=== PATIENT | female | born 1960 | race Asian ===

== ENCOUNTER 2017-05-27 11:57 | Emergency (ER) | payer BC ==
[2017-05-27 12:28] VITALS: BP 136/65
--- NOTE | 2017-05-27 13:52 | UC ---
Respiratory Complaint HPI - HPI Summary HPI Summary: Cough that began in April-feels like she is bringing up sputum but is not spitting it out, denies fevers, chills, night sweats, no bloody sputum or weight loss - History of Current Complaint Chief Complaint: UCRespiratory Stated Complaint: COUGH Time Seen by Provider: 05/27/17 13:19 Hx Obtained From: Patient ?: No Onset/Duration: Gradual Onset, Lasting Weeks - 4, Still Present Timing: Constant Severity Initially: Mild Severity Currently: Mild Character: Cough: Productive Aggravating Factors: Nothing Alleviating Factors: Nothing Associated Signs And Symptoms: Positive: Negative - Allergies/Home Medications Allergies/Adverse Reactions: Allergies Allergy/AdvReac Type Severity Reaction Status Date / Time No Known Allergies Allergy Verified 05/27/17 12:28 PMH/Surg Hx/FS Hx/Imm Hx Previously Healthy: No - tb treatment complete - Surgical History Surgical History: None - Family History Family History: no family hx of Cardiac disease or HTN - Social History Occupation: Unemployed Lives: With Family Alcohol Use: None Substance Use Type: None Smoking Status (MU): Never Smoked Tobacco - Immunization History Most Recent Influenza Vaccination: 02/2017 Most Recent Tetanus Shot: UNKNOWN Review of Systems Constitutional: Negative Skin: Negative Eyes: Negative ENT: Negative Respiratory: Cough Cardiovascular: Negative Gastrointestinal: Negative Genitourinary: Negative Motor: Negative Neurovascular: Negative Musculoskeletal: Negative Neurological: Negative Psychological: Negative Is Patient Immunocompromised?: No All Other Systems Reviewed And Are Negative: Yes Physical Exam Triage Information Reviewed: Yes Appearance: Well-Appearing, No Pain Distress, Well-Nourished Vital Signs: Initial Vital Signs Temp 98.6 F 05/27/17 12:23 Pulse 76 05/27/17 12:23 Resp 18 05/27/17 12:23 BP 136/65 05/27/17 12:23 Pulse Ox 99 05/27/17 12:23 Vital Signs Reviewed: Yes Eye Exam: Normal Eyes: Positive: Conjunctiva Clear ENT Exam: Normal ENT: Positive: Normal ENT inspection, Hearing grossly normal, Pharynx normal, TMs normal, Uvula midline. Negative: Nasal congestion, Tonsillar swelling, Tonsillar exudate, Muffled voice, Hoarse voice, Dental tenderness, Sinus tenderness Dental Exam: Normal Neck exam: Normal Neck: Positive: Supple, Nontender, No Lymphadenopathy Respiratory Exam: Normal Respiratory: Positive: Chest non-tender, Lungs clear, Normal breath sounds, No respiratory distress, No accessory muscle use Cardiovascular Exam: Normal Cardiovascular: Positive: RRR, No Murmur, Pulses Normal, Brisk Capillary Refill Musculoskeletal Exam: Normal Musculoskeletal: Positive: Strength Intact, ROM Intact, No Edema Neurological Exam: Normal Neurological: Positive: Alert, Muscle Tone Normal Psychological Exam: Normal Skin Exam: Normal UC Diagnostic Evaluation - Laboratory O2 Sat by Pulse Oximetry: 99 - Radiology Xray Interpretation: No Acute Changes Radiology Interpretation Completed By: ED Physician, Radiologist Respiratory Course/Dx - Course Course Of Treatment: Increase fluids, mucinex, zithromax, follow with pcp - Differential Dx/Diagnosis Provider Diagnoses: Bronchitis, Discharge - Discharge Plan Condition: Stable Disposition: HOME Prescriptions: Azithromycin TAB* [Zithromax TAB (Z-IMANI) 250 mg #6 tabs] 2 tab PO .TODAY, THEN 1 DAILY #1 imani Patient Education Materials: Cetirizine/Pseudoephedrine (By mouth), Chronic Cough (ED) Referrals: Marlene Rojas MD [Primary Care Provider] - If Needed
--- NOTE | 2017-05-27 14:19 | RAD ---
INDICATION: Cough COMPARISON: None TECHNIQUE: PA and lateral dual-energy views were obtained. FINDINGS: Bones/Soft Tissues: There are no acute bony findings. Cardiomediastinal: The cardiomediastinal silhouette is normal. Lungs: There are no infiltrates. Pleura: There is mild biapical pleural scarring. Other: None IMPRESSION: NO ACTIVE DISEASE.
== END 2017-05-27 14:40 | disposition home or self-care (01) ==
LOC: UCEAST 11:57
DX: J40 Bronchitis, not specified as acute or chronic (principal)
CPT/HCPCS: 71046; 99212; G0463

== ENCOUNTER 2017-08-03 14:41 | Emergency (ER) | payer BC ==
--- OUTSIDE RECORDS SUMMARY | 2017-08-03 15:27 | XMS REPORT ---
:1960 External Reference #:[id number] Author Organization [facility] Address [address] [address] Phone [phone] Care Team Providers Name Role Phone Marlene Rojas MD Primary Care Physician Unavailable Payers Type Date Identification Numbers Payment Provider Subscriber Commercial Effective: Policy Number: [id number] BS Skyler Longo 2016 PayID: [id number] [address] [address] [place] [address] Medigap Part B Expires: 2016 Policy Number: [id number] BS Facets Alec Longo PayID: [id number] [address] [address] [place] [address] Problems Date Description Provider Status Onset: 01/20/2017 Hyperlipidemia Marlene Rojas M.D. Active Note: familial Onset: 01/20/2017 Adjustment disorder with anxious mood Marlene Rojas M.D. Active Onset: 02/17/2017 History of inactive tuberculosis Marlene Rojas M.D. Active Onset: 02/17/2017 History of Helicobacter pylori Marlene Rojas M.D. Active infection Onset: Uterine leiomyoma Active Family History Date Family Member(s) Problem(s) Comments General Hypercholesterolemia father side of family : (age 69 Father due to Stroke stroke.HTN Years) Mother 95 of pneumonia dementia Siblings 9 Social History Type Date Description Comments Marital Status Lives With Daughter Occupation Homemaker Cigarette Use Never Smoked Cigarettes ETOH Use Drinks Alcoholic Beverages Rarely Smoking Patient has never smoked Recreational Drug Use Never Used Drugs Daily Caffeine Does Not Consume Caffeine General Hx Text knitting Allergies, Adverse Reactions, Alerts Date Description Reaction Status Severity Comments 01/18/2017 NKDA active Medications Medication Date Status Form Strength Qnty SIG Indications Ordering Provider Crestor Active Tablets 5mg 90tabs 1 by Marlene Wheeler mouth Rojas, every day M.D. Vitamin D3 Active Chewtabs 1000Unit 90units 1 by Marlene Adult Gummies 018 mouth Rojas, every day M.D. OTC Fenofibrate Hx Tablets 120mg 90tabs not E78.4 Marlene 017 - taking--o Rojas, nce a day M.D. 018 Multi Vitamin 0 Hx Tablets not Unknown 000 - taking 018 Rosuvastatin Hx Tablets 5mg not Carl, Calcium 000 - taking MD Tami 017 Medications Administered in Office Medication Date Status Form Strength Qnty SIG Indications Ordering Provider Td(Adult),Unsp Administered Injection Unknown ecified 010 Immunizations CPT Code Status Date Vaccine Reaction Lot # [id number] Given 07/05/2017 Tdap - [id number] Tetanus/Diptheria/Acellular Pertussis 56308 Given 02/17/2017 Influenza Virus Vaccine, givenIM in L [id number] Quadrivalent, Split, arm,marine.well site Preservative Free unremarkable,bandaid applied Vital Signs Date Vital Result Comment 07/05/2017 Height 62.2 inches 5'2.20" Weight 107.00 lb Heart Rate 56 /min BP Systolic Sitting 110 mmHg BP Diastolic Sitting 60 mmHg O2 % BldC Oximetry 97 % BMI (Body Mass Index) 19.4 kg/m2 02/17/2017 Weight 104.38 lb Heart Rate 66 /min BP Systolic Sitting 120 mmHg BP Diastolic Sitting 74 mmHg Body Temperature 96.3 F O2 % BldC Oximetry 96 % 01/18/2017 Height 62.1 inches 5'2.10" Weight 103.00 lb Heart Rate 51 /min BP Systolic Sitting 146 mmHg BP Diastolic Sitting 88 mmHg Body Temperature 96.4 F O2 % BldC Oximetry 98 % BMI (Body Mass Index) 18.8 kg/m2 Results Test Date Test Result H/L Range Note Laboratory test finding 06/29/2017 Creatine Kinase(CK) 42 U/L 10-223 1 Quantiferon Gold TB <pending> Comp Metabolic Panel 06/29/2017 Sodium 138 mmol/L 133-145 Potassium 3.6 mmol/L 3.5-5.0 Chloride 103 mmol/L 101-111 Co2 Carbon Dioxide 27 mmol/L 22-32 Anion Gap 8 mmol/L 2-11 Glucose 96 mg/dL 70-100 Blood Urea Nitrogen 13 mg/dL 6-24 Creatinine 0.61 mg/dL 0.51-0.95 BUN/Creatinine Ratio 21.3 High 8-20 Calcium 9.6 mg/dL 8.6-10.3 Total Protein 7.2 g/dL 6.4-8.9 Albumin 4.6 g/dL 3.2-5.2 Globulin 2.6 g/dL 2-4 Albumin/Globulin Ratio 1.8 1-3 Total Bilirubin 0.70 mg/dL 0.2-1.0 Alkaline Phosphatase 98 U/L 34-104 Alt 10 U/L 7-52 Ast 16 U/L 13-39 Egfr Non- 101.1 >60 Egfr 130.0 >60 2 Lipid Profile (Trig/Chol/HDL) 06/29/2017 Triglycerides 214 mg/dL 3 Cholesterol 233 mg/dL 4 HDL Cholesterol 60.8 mg/dL 5 LDL Cholesterol 129 mg/dL 6 Laboratory test finding 06/25/2017 Helico Pylori Antigen- Negative Negative 7, 8 Stool Lipid Profile 02/09/2017 Triglycerides 101 mg/dL 9 (Trig/Chol/HDL) Cholesterol 287 mg/dL 10 HDL Cholesterol 70.6 mg/dL 11 LDL Cholesterol 196 mg/dL 12 Comp Metabolic Panel 02/09/2017 Sodium 138 mmol/L 133-145 Potassium 3.8 mmol/L 3.5-5.0 Chloride 102 mmol/L 101-111 Co2 Carbon Dioxide 30 mmol/L 22-32 Anion Gap 6 mmol/L 2-11 Glucose 92 mg/dL 70-100 Blood Urea Nitrogen 16 mg/dL 6-24 Creatinine 0.66 mg/dL 0.51-0.95 BUN/Creatinine Ratio 24.2 High 8-20 Calcium 9.3 mg/dL 8.6-10.3 Total Protein 7.0 g/dL 6.4-8.9 Albumin 4.5 g/dL 3.2-5.2 Globulin 2.5 g/dL 2-4 Albumin/Globulin Ratio 1.8 1-3 Total Bilirubin 0.70 mg/dL 0.2-1.0 Alkaline Phosphatase 83 U/L 34-104 Alt 9 U/L 7-52 Ast 17 U/L 13-39 Egfr Non- 92.6 >60 Egfr 119.1 >60 13 1 FASTING 10 HOUR 2 Because ethnic data is not always readily available, this report includes an eGFR for both -Americans and non- Americans. The National Kidney Disease Education Program (NKDEP) does not endorse the use of the MDRD equation for patients that are not between the ages of 18 and 70, are , have extremes of body size, muscle mass, or nutritional status, or are non- or non-. According to the National Kidney Foundation, irrespective of diagnosis, the stage of the disease is based on the level of kidney function: Stage Description GFR(mL/min/1.73 m(2)) 1 Kidney damage with normal or decreased GFR 90 2 Kidney damage with mild decrease in GFR 60-89 3 Moderate decrease in GFR 30-59 4 Severe decrease in GFR 15-29 5 Kidney failure <15 (or dialysis) 3 Desirable: <150 Borderline High: 150-199 High: 200-499 Very High: >500 4 Desirable: <200 Borderline High: 200-239 High: >239 5 Low: <40 Desirable: 40-60 High: >60 6 Desirable: <100 Near Optimal: 100-129 Borderline High: 130-159 High: 160-189 Very High: >189 7 [id number] Test Performed by: [address] [address] 9 Desirable <150 Borderline high 150-199 High 200-499 Very High >500 10 Desirable <200 Borderline high 200-239 High >239 11 Low <40 Desirable: 40-60 High: >60 12 Desirable: <100 mg/dL Near Optimal: 100-129 mg/dL Borderline High: 130-159 mg/dL High: 160-189 mg/dL Very High: >189 mg/dL 13 Because ethnic data is not always readily available, this report includes an eGFR for both -Americans and non- Americans. The National Kidney Disease Education Program (NKDEP) does not endorse the use of the MDRD equation for patients that are not between the ages of 18 and 70, are , have extremes of body size, muscle mass, or nutritional status, or are non- or non-. According to the National Kidney Foundation, irrespective of diagnosis, the stage of the disease is based on the level of kidney function: Stage Description GFR(mL/min/1.73 m(2)) 1 Kidney damage with normal or decreased GFR 90 2 Kidney damage with mild decrease in GFR 60-89 3 Moderate decrease in GFR 30-59 4 Severe decrease in GFR 15-29 5 Kidney failure <15 (or dialysis) Procedures Date CPT Code Description Status Comment 05/26/2017 Mammogram Completed 12/08/2012 55358 Treadmill Interp/Report Only Completed 12/08/2012 63814 Stress Test Supervsn W/Out Completed I/R 05/10/2012 Colonoscopy Completed internal hemorrhoids other villarreal nl repeat 2022 Dr. molina Encounters Type Date Location Provider CPT E/M Dx Office Visit 02/17/2017 [facility] Marlene Rojas M.D. 59831 F43.22 8:30a - [place] E78.4 R12 Z23 Z11.1 Office Visit 01/18/2017 9:10a [facility] Marlene Rojas M.D. 93383 E78.4 - [facility] Z91.14 F43.22 Office Visit 12/08/2012 8:18a [facility],perez Bonner M.D. 01429 786.50 Hospitalists 782.0 311 Office Visit 12/08/2012 8:59a [facility] Sacha Walden, 15868 794.31 Vania 786.50 272.4 Office Visit 12/07/2012 8:18a [facility],perez Bonner M.D. 38433 786.50 Hospitalists 782.0 311 Office Visit 11/17/2012 8:56a [facility], [address] 965.4 Hospitalists Vania 272.2 Plan of Care Future Appointment(s):09/02/2017 9:50 am - Marlene Rojas M.D. at [facility] - Wkplyvnfo01/26/2018 - Marlene Rojas M.D.Z00.00 Encntr for general adult medical exam w/o abnormal findingsComments:self breast exams are important monthlywe discussed taking at least 1000 mg of calcium and 1000 IU of D daily to help protect your bones you received the tetanus/whooping cough vaccine today which is good for 10 egxyvK20.4 Encounter for screening for malignant neoplasm of cervixNew Labs:LxeocsvbS94.2 Mixed hyperlipidemiaComments: continue to take Crestor daily as you are tolerating the medication wellR12 HeartburnComments:take prilosec daily for at least 6 weeksFollow up:2 [id number] Encounter for tazivmjjkqspN55.11 Nonspecific reaction to skin test w/o active tuberculosisReferral:Gian Cope MD, Infectious Diseases
[2017-08-03] MEDS ORDERED: Meclizine TAB* 12.5 MG PO ONE (16:07)
[2017-08-03 16:25] LABS: ABS Basophils 0 10^3/ul (0-0.2); ABS Eosinophils 0.2 10^3/ul (0-0.6); ABS Lymphocytes 1.4 10^3/ul (1.0-4.8); ABS Monocytes 0.3 10^3/ul (0-0.8); ABS Nucleated RBC 0 10^3/ul; Eosinophil % 5.8 % (0-6); Hematocrit 35 % (35-47); Hemoglobin 11.7 g/dl (12.0-16.0); Lymphocyte % 36.4 % (25-47); Mean Corpuscular HGB Conc 33 g/dl (31-36); Mean Corpuscular Hemoglobin 29 pg (27-31); Mean Corpuscular Volume 87 fL (80-97); Mean Platelet Volume 7.8 um3 (7.4-10.4); Nucleated Red Blood Cells % 0; Platelet Count 177 10^3/ul (150-450); Red Blood Count 4.02 10^6/ul (4.0-5.4); Red Cell Distribution Width 13 % (10.5-15)
[2017-08-03 16:41] LABS: INR 0.92 (0.77-1.02)
--- NOTE | 2017-08-03 17:07 | RAD ---
INDICATION: Dizziness COMPARISON: Chest x-ray dated May 27, 2017 TECHNIQUE: Single AP portable view of the chest was obtained. FINDINGS: Image quality is compromised due to the relative inferiority of a portable chest x-ray. The heart and mediastinum exhibit normal size and contour. The lungs are grossly clear. There is no evidence of a large pleural effusion. Visualized bones are normal for the patient's age. IMPRESSION: No radiographic evidence for acute cardiopulmonary abnormality on this portable chest x-ray.
--- NOTE | 2017-08-03 17:14 | RAD ---
INDICATION: Dizziness and nausea after hitting head on scaffolding 3-4 times over the past 3 days. COMPARISON: CT of the brain dated December 07, 2012 TECHNIQUE: Contiguous axial sections of the brain were obtained from the skull base to the vertex without contrast. FINDINGS: The ventricles, cisterns and sulci are within normal limits. The hyman-white matter differentiation is adequately maintained and there is no sulcal effacement. No significant focal abnormality or mass effect is present. There is no evidence for intracranial hemorrhage. No significant focal osseous abnormality is present. The visualized portion of the paranasal sinuses appear clear. The mastoid air cells are well aerated bilaterally. IMPRESSION: Normal CT of the brain.
[2017-08-03 18:03] LABS: Urine Appearance Clear; Urine Blood 2+ (Negative); Urine Color Yellow; Urine Ketones Negative (Negative); Urine Protein Negative (Negative); Urine Specific Gravity 1.013 (1.010-1.030); Urine Urobilinogen Negative (Negative)
[2017-08-03] MEDS ORDERED: Ondansetron ODT TAB* 4 MG PO ONE (18:08)
[2017-08-03 18:47] VITALS: BP 129/65
--- NOTE | 2017-08-03 21:17 | ED ---
Rogelio Boles Jennifer, scribed for Corwin Garcia on 08/03/17 at 1605 . Head Injury - HPI Summary HPI Summary: The patient is a 57 year old female who complains of hitting her head 4-5 times in the past few days. She reports that she has been painting her house and has repeatedly hit her head on the scaffolding three times yesterday and once this morning. She came to the ED because she has had headaches every night, nausea, and dizziness. She denies chest pain, shortness of breath, and fever. The patient additionally complains of neck pain, left ear pain, feeling like her eyes are burning. - History Of Current Complaint Chief Complaint: EDHeadInjury Stated Complaint: HEAD INJURY/NAUSEA Time Seen by Provider: 08/03/17 15:46 Hx Obtained From: Patient Mechanism Of Injury: Other - Hit head on scaffolding while painting house Onset/Duration: Started Days Ago - 3 days, Still Present Onset of Pain: Hours Severity Currently: None Severity Initially: Mild Pain Intensity: 0 Pain Scale Used: 0-10 Numeric Location of Head Injury: Diffuse Location: Diffuse Associated Signs And Symptoms: Other: - headache, nausea, dizziness, neck pain, left ear pain, eyes "burning". NEGATIVE: chest pain, shortness of breath, fever - Allergies/Home Medications Allergies/Adverse Reactions: Allergies Allergy/AdvReac Type Severity Reaction Status Date / Time No Known Allergies Allergy Verified 08/03/17 14:49 PMH/Surg Hx/FS Hx/Imm Hx Endocrine/Hematology History: Denies: Hx Diabetes Cardiovascular History: Reports: Hx Angina - CHEST PRESSURE, Hx Hypercholesterolemia, Other Cardiovascular Problems/Disorders - HYPERLIPIDEMIA Denies: Hx Congestive Heart Failure, Hx Hypertension, Hx Pacemaker/ICD Respiratory History: Reports: Hx Asthma Denies: Hx Chronic Obstructive Pulmonary Disease (COPD), Other Respiratory Problems/Disorders GI History: Reports: Other GI Disorders - HELICOBACTOR PYLORI History: Denies: Hx Renal Disease Sensory History: Denies: Hx Hearing Aid Neurological History: Reports: Hx Migraine Psychiatric History: Reports: Hx Depression, Hx Suicide Attempt - MOTRIN OVERDOSE 11/2012 Denies: Hx Eating Disorder, Hx Panic Disorder, Hx of Violent Episodes Against Others - Cancer History Hx Chemotherapy: No Hx Radiation Therapy: No - Immunization History Date of Tetanus Vaccine: Unk Date of Influenza Vaccine: Fall 2011 Immunizations Up to Date: Yes Infectious Disease History: No Infectious Disease History: Reports: Hx Tuberculosis - PER OLD H&P Denies: History Other Infectious Disease, Traveled Outside the [place] in Last 30 Days - Family History Known Family History: Negative: Cardiac Disease, Hypertension Family History: no family hx of Cardiac disease or HTN - Social History Alcohol Use: None Substance Use Type: Reports: None Smoking Status (MU): Never Smoked Tobacco Review of Systems Positive: Other - Feelign like eyes are "burning" Positive: Ear Ache - Left Positive: Nausea Positive: Other - Neck pain Neurological: Other - Dizziness Positive: Headache All Other Systems Reviewed And Are Negative: Yes Physical Exam - Summary Physical Exam Summary: Appearance: Well appearing, no pain distress Skin: warm, dry, reflects adequate perfusion Head/face: normal Eyes: EOMI, SINA ENT: normal Neck: supple, non-tender Respiratory: CTA, breath sounds present Cardiovascular: RRR, pulses symmetrical ~ Abdomen: non-tender, soft Bowel: present Musculoskeletal: normal, strength/ROM intact Neuro: normal, sensory motor intact, A&Ox3 Triage Information Reviewed: Yes Vital Signs On Initial Exam: Initial Vitals Temp Pulse Resp BP Pulse Ox 97.8 F 57 20 120/68 98 08/03/17 14:50 08/03/17 14:50 08/03/17 14:50 08/03/17 14:50 08/03/17 14:50 Vital Signs Reviewed: Yes Diagnostics - Vital Signs Vital Signs Temp Pulse Resp BP Pulse Ox 08/03/17 14:50 97.8 F 57 20 120/68 98 - Laboratory Lab Results: Lab Results 08/03/17 08/03/17 08/03/17 Range/Units 16:15 16:15 16:15 WBC 4.0 (3.5-10.8) 10^3/ul RBC 4.02 (4.0-5.4) 10^6/ul Hgb 11.7 L (12.0-16.0) g/dl Hct 35 (35-47) % MCV 87 (80-97) fL MCH 29 (27-31) pg MCHC 33 (31-36) g/dl RDW 13 (10.5-15) % Plt Count 177 (150-450) 10^3/ul MPV 7.8 (7.4-10.4) um3 Neut % (Auto) 49.1 (38-83) % Lymph % (Auto) 36.4 (25-47) % Barry % (Auto) 8.1 H (0-7) % Eos % (Auto) 5.8 (0-6) % Baso % (Auto) 0.6 (0-2) % Absolute Neuts (auto) 2.0 (1.5-7.7) 10^3/ul Absolute Lymphs (auto) 1.4 (1.0-4.8) 10^3/ul Absolute Monos (auto) 0.3 (0-0.8) 10^3/ul Absolute Eos (auto) 0.2 (0-0.6) 10^3/ul Absolute Basos (auto) 0 (0-0.2) 10^3/ul Absolute Nucleated RBC 0 10^3/ul Nucleated RBC % 0 INR (Anticoag Therapy) 0.92 (0.77-1.02) APTT 32.1 (26.0-36.3) seconds Sodium 142 (139-145) mmol/L Potassium 3.5 (3.5-5.0) mmol/L Chloride 107 (101-111) mmol/L Carbon Dioxide 27 (22-32) mmol/L Anion Gap 8 (2-11) mmol/L BUN 15 (6-24) mg/dL Creatinine 0.79 (0.51-0.95) mg/dL Est GFR ( Amer) 96.5 (>60) Est GFR (Non-Af Amer) 75.0 (>60) BUN/Creatinine Ratio 19.0 (8-20) Glucose 118 H (70-100) mg/dL Calcium 9.3 (8.6-10.3) mg/dL Total Bilirubin 0.50 (0.2-1.0) mg/dL AST 17 (13-39) U/L ALT 12 (7-52) U/L Alkaline Phosphatase 78 (34-104) U/L Troponin I 0.00 (<0.04) ng/mL Total Protein 6.9 (6.4-8.9) g/dL Albumin 4.3 (3.2-5.2) g/dL Globulin 2.6 (2-4) g/dL Albumin/Globulin Ratio 1.7 (1-3) Urine Color Urine Appearance Urine pH (5-9) Ur Specific [place] (1.010-1.030) Urine Protein (Negative) Urine Ketones (Negative) Urine Blood (Negative) Urine Nitrate (Negative) Urine Bilirubin (Negative) Urine Urobilinogen (Negative) Ur Leukocyte Esterase (Negative) Urine WBC (Auto) (Absent) Urine RBC (Auto) (Absent) Ur Squamous Epith Cells (Absent) Urine Bacteria (Absent) Urine Glucose (Negative) 08/03/17 Range/Units 17:50 WBC (3.5-10.8) 10^3/ul RBC (4.0-5.4) 10^6/ul Hgb (12.0-16.0) g/dl Hct (35-47) % MCV (80-97) fL MCH (27-31) pg MCHC (31-36) g/dl RDW (10.5-15) % Plt Count (150-450) 10^3/ul MPV (7.4-10.4) um3 Neut % (Auto) (38-83) % Lymph % (Auto) (25-47) % Barry % (Auto) (0-7) % Eos % (Auto) (0-6) % Baso % (Auto) (0-2) % Absolute Neuts (auto) (1.5-7.7) 10^3/ul Absolute Lymphs (auto) (1.0-4.8) 10^3/ul Absolute Monos (auto) (0-0.8) 10^3/ul Absolute Eos (auto) (0-0.6) 10^3/ul Absolute Basos (auto) (0-0.2) 10^3/ul Absolute Nucleated RBC 10^3/ul Nucleated RBC % INR (Anticoag Therapy) (0.77-1.02) APTT (26.0-36.3) seconds Sodium (139-145) mmol/L Potassium (3.5-5.0) mmol/L Chloride (101-111) mmol/L Carbon Dioxide (22-32) mmol/L Anion Gap (2-11) mmol/L BUN (6-24) mg/dL Creatinine (0.51-0.95) mg/dL Est GFR ( Amer) (>60) Est GFR (Non-Af Amer) (>60) BUN/Creatinine Ratio (8-20) Glucose (70-100) mg/dL Calcium (8.6-10.3) mg/dL Total Bilirubin (0.2-1.0) mg/dL AST (13-39) U/L ALT (7-52) U/L Alkaline Phosphatase (34-104) U/L Troponin I (<0.04) ng/mL Total Protein (6.4-8.9) g/dL Albumin (3.2-5.2) g/dL Globulin (2-4) g/dL Albumin/Globulin Ratio (1-3) Urine Color Yellow Urine Appearance Clear Urine pH 5.0 (5-9) Ur Specific [place] 1.013 (1.010-1.030) Urine Protein Negative (Negative) Urine Ketones Negative (Negative) Urine Blood 2+ A (Negative) Urine Nitrate Negative (Negative) Urine Bilirubin Negative (Negative) Urine Urobilinogen Negative (Negative) Ur Leukocyte Esterase Negative (Negative) Urine WBC (Auto) Trace(0-5/hpf) (Absent) Urine RBC (Auto) Trace(0-2/hpf) (Absent) Ur Squamous Epith Cells Present A (Absent) Urine Bacteria Absent (Absent) Urine Glucose Negative (Negative) Result Diagrams: 08/03/17 16:15 08/03/17 16:15 Lab Statement: Any lab studies that have been ordered have been reviewed, and results considered in the medical decision making process. - Radiology CXR Xray Interpretation: No Acute Changes - No radiographic evidence for acute cardiopulmonary abnormality on this portable chest x-ray. Dr. Garcia has reviewed this report. Radiology Interpretation Completed By: Radiologist - CT CT Brain CT Interpretation: No Acute Changes - Normal CT of the brain. Dr. Garcia has reviewed this report. CT Interpretation Completed By: Radiologist - EKG 16:10 Cardiac Rate: Bradycardia EKG Rhythm: Sinus Bradycardia - 50 BPM Head Injury Course/Dx Course Of Treatment: The patient is a 57 year old female who complains of hitting her head 4-5 times while painting her house in the past few days. In the ED course the patient was given Antivert. Bloodwork and urinalysis were obtained. EKG showed sinus bradycardia at [address] Brain were obtained. The patient is diagnosed with head injury and dizziness. Patient is instructed to follow up with PCP in 3 days. - Diagnoses Differential Diagnosis/HQI/PQRI: Contusion, Intracranial Bleed Provider Diagnoses: Head injury, Dizziness Discharge - Sign-Out/Discharge Documenting (check all that apply): Discharge - Discharge Plan Condition: Stable Disposition: HOME Prescriptions: Meclizine TAB* [Antivert 12.5 TAB*] 25 mg PO TID #15 tab Ondansetron ODT TAB* [Zofran 4 MG Odt TAB*] 4 mg PO Q8H PRN #20 tab.odt MDD 3 PRN Reason: Nausea Patient Education Materials: Head Injury (ED), Dizziness (ED) Referrals: Marlene Rojas MD [Primary Care Provider] - 3 Days Additional Instructions: Follow up with your primary care physician in three days. Return to the emergency department for any new or worsening symptoms. - Billing Disposition and Condition Condition: STABLE Disposition: HOME The documentation as recorded by the Rogelio sanchez Jennifer accurately reflects the service I personally performed and the decisions made by , Corwin Garcia.
== END 2017-08-03 18:47 | disposition home or self-care (01) ==
LOC: ED 14:41
DX: S09.90XA Unspecified injury of head, initial encounter (principal); Y93.H9 Activity, other involving exterior property and land maintenance, building and construction; Y93.89 Activity, other specified; Y92.008 Other place in unspecified non-institutional (private) residence as the place of occurrence of the external cause; R42 Dizziness and giddiness; M54.2 Cervicalgia; H92.02 Otalgia, left ear; R00.1 Bradycardia, unspecified; I20.9 Angina pectoris, unspecified; E78.00 Pure hypercholesterolemia, unspecified; E78.5 Hyperlipidemia, unspecified; J45.909 Unspecified asthma, uncomplicated; G43.909 Migraine, unspecified, not intractable, without status migrainosus; Z91.5 Personal history of self-harm
CPT/HCPCS: 36415; 70450; 71045; 80053; 81003; 81015; 84484; 85025; 85610; 85730; 87086; 93005; 99282; A9270-GY

== ENCOUNTER 2017-09-30 20:08 | Emergency (ER) | payer BC ==
--- OUTSIDE RECORDS SUMMARY | 2017-09-30 20:14 | XMS REPORT ---
:1960 External Reference #:[id number] Author Organization [facility] Address [address] [address] Phone [phone] Care Team Providers Name Role Phone Marlene Rojas MD Primary Care Physician Unavailable Payers Type Date Identification Numbers Payment Provider Subscriber Commercial Effective: Policy Number: [id number] BS Facets Alec Vt 2016 PayID: [id number] [address] [address] [place] [address] Medigap Part B Expires: 2016 Policy Number: [id number] BS Facets Alec Vt PayID: [id number] [address] [place] [address] Problems Date Description Provider Status Onset: 01/20/2017 [...] mouth Rojas, every day M.D. Vitamin D3 Hx Chewtabs 1000Unit 90units 1 by Marlene Adult Gummies 018 - mouth Rojas, every day M.D. 018 OTC Fenofibrate Hx Tablets 120mg 90tabs not E78.4 Marlene 017 - taking--o Rojas, nce a day M.D. 018 Multi Vitamin Hx Tablets not Unknown 000 - taking 018 Rosuvastatin Hx Tablets 5mg not Carl, Calcium 000 - taking MD Tami 017 Medications Administered in Office Medication Date Status Form Strength Qnty SIG Indications Ordering Provider Trevon(Adult),Abdip Administered Injection Unknown ecified 010 Immunizations CPT Code Status Date Vaccine Reaction Lot # 79141 Given 07/05/2017 Tdap - [id number] Tetanus/Diptheria/Acellular Pertussis 04240 Given 02/17/2017 Influenza Virus Vaccine, givenIM in L [id number] Quadrivalent, Split, arm,marine.well site Preservative Free unremarkable,bandaid applied Vital Signs Date Vital Result Comment 09/14/2017 Height 62.2 inches 5'2.20" Weight 107.50 lb Heart Rate 53 /min BP Systolic Sitting 100 mmHg BP Diastolic Sitting 64 mmHg Respiratory Rate 14 /min Body Temperature 97.3 F O2 % BldC Oximetry 98 % BMI (Body Mass Index) 19.5 kg/m2 07/15/2017 Height 62.2 inches 5'2.20" Weight 105.12 lb Heart Rate 60 /min BP Systolic Sitting 120 mmHg BP Diastolic Sitting 62 mmHg Respiratory Rate 14 /min Body Temperature 97.4 F BMI (Body Mass Index) 19.1 kg/m2 07/05/2017 Height 62.2 inches 5'2.20" Weight 107.00 [...] Test Date Test Result H/L Range Note Acid Fast Culture 07/22/2017 Acid Fast Culture SEE RESULT BELOW 1 & Smear Smear Laboratory test 07/22/2017 Mycobacterial Culture See Comment 2 finding Laboratory test 07/22/2017 Mycobacterial Culture See Comment () 3 finding Laboratory test 07/22/2017 Mycobacterial Culture See Comment () 4 finding Acid Fast Culture 07/21/2017 Acid Fast Culture SEE RESULT BELOW 5 & Smear Smear Afb- Fast Track 07/21/2017 Afb - Fast Track SEE RESULT BELOW 6 Nysdoh Nysdoh Acid Fast Culture 07/20/2017 Acid Fast Culture SEE RESULT BELOW 7 & Smear Smear Laboratory test 07/20/2017 Mycobacterial Culture See Comment 8 finding Laboratory test 07/05/2017 Cytology SEE RESULT BELOW 9 finding Laboratory test 06/29/2017 Creatine Kinase(CK) 42 U/L 10-223 10 finding Comp Metabolic 06/29/2017 Sodium 138 mmol/L 133-145 Panel Potassium 3.6 mmol/L 3.5-5.0 Chloride 103 mmol/L [...] Egfr Non- 101.1 >60 Egfr 130.0 >60 11 Lipid Profile (Trig/Chol/HDL) 06/29/2017 Triglycerides 214 mg/dL 12 Cholesterol 233 mg/dL 13 HDL Cholesterol 60.8 mg/dL 14 LDL Cholesterol 129 mg/dL 15 Quantiferon Gold TB 06/29/2017 QuantiFERON-Tb Gold Plus Positive Negative 16 TB1 Ag minus Nil Result 6.72 IU/mL TB2 Ag minus Nil Result 7.68 IU/mL TB Mitogen minus Nil Result > 10.00 IU/mL TB Nil Result 0.03 IU/mL 17 Laboratory test 06/25/2017 Helico Pylori Antigen- Negative Negative 18, 19 finding Stool Lipid Profile 02/09/2017 Triglycerides 101 mg/dL 20 (Trig/Chol/HDL) Cholesterol 287 mg/dL 21 HDL Cholesterol 70.6 mg/dL 22 LDL Cholesterol 196 mg/dL 23 Comp Metabolic Panel 02/09/2017 Sodium 138 mmol/L [...] Egfr Non- 92.6 >60 Egfr 119.1 >60 24 1 SEE RESULT BELOW Name: RONNIE LONGO : [address]: Gian Hendrickson MD Acct: [id number] Unit: [id number] AGE: 57 Location: RESP Re07/22/17 SEX: F Status: REG REF SPEC: [id number] HARDY: 07/22/17-[address] [facility] [address]: Gian Hendrickson MD REQ: [id number] RECD: 07/22/17 STATUS: COMP [facility] DR: Marlene Rojas MD _ SOURCE: RESP SPDESC:SPUTUM IND ORDERED: AFB Cult Smear Procedure Result Reported Site Acid Fast Stain - Direct Final 07/22/17- 1116 ML AFB Smear Result No Acid Fast Bacillus Present (Negative) Preparation By Direct Smear Due to limited sensitivity of the smear, results should be used as an adjunct in evaluating the patient's status. This specimen has been sent to referral laboratory for mycobacterial culture. * ML - Main Lab . END OF REPORT DEPARTMENT OF PATHOLOGY, [address] [place] [address] Ignacio Mcfarland M.D. Director [facility] # [id number] 2 SOURCE: SPUTUM, SPUTUM INDUCED MYCOBACTERIAL CULTURE FINAL No growth after 42 days of incubation. Test Performed by: [place] [address] 3 SOURCE: SPUTUM, SPUTUM INDUCED Additional Report MYCOBACTERIAL CULTURE FINAL ACID FAST ORGANISM [facility] [place] Previous comment was modified at 15:05 on 09/10/2017: No growth after 42 days of incubation. Test Performed by: [place] [id number] REVISED REPORT --- Revised on 09/10/17 1601 --- Culture Result previously reported as: See Comment SOURCE: SPUTUM, SPUTUM INDUCED MYCOBACTERIAL CULTURE FINAL No growth after 42 days of incubation. Test Performed by: [address] [address] 4 SOURCE: SPUTUM, SPUTUM INDUCED Additional Report MYCOBACTERIAL CULTURE FINAL MYCOBACTERIUM AVIUM COMPLEX [facility] [place] Previous comment was modified at 15:05 on 09/10/2017: No growth after 42 days of incubation. Test Performed by: [address] [address] REVISED REPORT --- Revised on 09/13/17 1549 --- Culture Result previously reported as: See Comment An SOURCE: SPUTUM, SPUTUM INDUCED Additional Report MYCOBACTERIAL CULTURE FINAL ACID FAST ORGANISM [facility] [place] Previous comment was modified at 15:05 on 09/10/2017: No growth after 42 days of incubation. Test Performed by: [place] [id number] REVISED REPORT --- Revised on 09/10/17 2674 --- Culture Result previously reported as: See Comment SOURCE: SPUTUM, SPUTUM INDUCED MYCOBACTERIAL CULTURE FINAL No growth after 42 days of incubation. Test Performed by: [facility] [address] [place] [address] 5 SEE RESULT BELOW Name: RONNIE LONGO : [address]: Gian Hendrickson MD Acct: [id number] Unit: [id number] AGE: 57 Location: RESP Re07/21/17 SEX: F Status: REG REF SPEC: [id number] HARDY: 07/21/[address] [facility] [address]: Gian Hendrickson MD REQ: [id number] RECD: 07/21/17 STATUS: [facility] DR: Marlene Rojas MD _ SOURCE: RESP SPDESC:SPUTUM IND ORDERED: AFB Cult Smear Procedure Result Reported Site Acid Fast Stain - Direct Final 07/21/17- 1014 ML AFB Smear Result No Acid Fast Bacillus Present (Negative) Preparation By Direct Smear Due to limited sensitivity of the smear, results should be used as an adjunct in evaluating the patient's status. This specimen has been sent to referral laboratory for mycobacterial culture. * ML - Main Lab . END OF REPORT DEPARTMENT OF PATHOLOGY, [address] [place] [address] Ignacio Mcfarland M.D. Director [facility] # [id number] 6 SEE RESULT BELOW Name: RONNIE GOMEZ : [address]: Gian Hendrickson MD Acct: [id number] Unit: [id number] AGE: 57 Location: RESP Re07/21/17 SEX: F Status: REG REF SPEC: [id number] HARDY: 07/21/17-[address] [facility] [address]: Gian Hendrickson MD REQ: [id number] RECD: 07/21/17 STATUS: COMP [facility] DR: Marlene Rojas MD _ SOURCE: RESP SPDESC:SPUTUM IND ORDERED: AFB Fast Track COMMENTS: SPUTUM #1 OF 3 FOR FAST TRACK; [place] Procedure Result Reported Site AFB - Fast Track [facility] Final 09/10/17- 924 ML Specimen Id: [id number] Submitter's Specimen Id: [id number] Specimen Type: Sputum Concentrated Smear(Ziehl - Neelsen/1,000 X) (07/23/17) No acid-fast bacilli seen. 07/23/2017 Direct Molecular Detection - Real-time PCR Mycobacterium tuberculosis complex DNA by real-time PCR*:NOT DETECTED Mycobacterium avium complex DNA by realtime PCR*:NOT DETECTED Culture: No acid-fast bacillus isolated from liquid and solid media * The performance characteristics of this test were determined by the [facility]. It has not been cleared or approved by the U.S.Food and Drug Administration. Test Performed by: [facility] [address] [place] [address] * - Main Lab . END OF REPORT DEPARTMENT OF PATHOLOGY, [address] [place] [address] Ignacio Mcfarland M.D. Director [facility] # [id number] 7 SEE RESULT BELOW Name: RONNIE LONGO : [address]: Gian Hendrickson MD Acct: [id number] Unit: [id number] AGE: 57 Location: RESP Re07/20/17 SEX: F Status: REG REF SPEC: [id number] HARDY: 07/20/17-[address]: Gian Hendrickson MD REQ: [id number] RECD: 07/21/17770 STATUS: COMP [facility] DR: Marlene Rojas MD _ SOURCE: RESP SPDESC:SPUTUM ORDERED: AFB Cult Smear Procedure Result Reported Site Acid Fast Stain - Direct Final 07/22/17- 1406 ML AFB Smear Result No Acid Fast Bacillus Present (Negative) Preparation By Direct Smear Due to limited sensitivity of the smear, results should be used as an adjunct in evaluating the patient's status. This specimen has been sent to referral laboratory for mycobacterial culture. * ML - Main Lab . END OF REPORT DEPARTMENT OF PATHOLOGY, [address] [place] [address] Ignacio Mcfarland M.D. Director [facility] # [id number] 8 SOURCE: SPUTUM MYCOBACTERIAL CULTURE FINAL No growth after 42 days of incubation. Test Performed by: [address] [address] 9 SEE RESULT BELOW Name: RONNIE LONGO : [address]: Marlene Rojas MD Acct: [id number] Unit: [id number] AGE: 57 Location: [facility] Re07/05/17 SEX: F Status: REG REF SPEC: [id number] HARDY: 07/05/[address]: Marlene Rojas MD REQ: [id number] RECD: 07/05/17 STATUS: SOUT _ ORDERED: TP IMAGE ANAL, HPV/Thin Prep, HPV 16/18 GENE COMMENTS: [id number] Negative for Intraepithelial lesion or Malignancy A. Ectocervical/Endocervical Specimen Adequacy: Satisfactory of evaluation Transformation zone component cannot be definitely identified due to presence of atrophy or other hormonal changes Patient Information: HPV: High risk HPV RNA testing regardless of pap results. HPV 16/18 Genotype Reflex Actual Specimen Date: 07/05/17 Post Menopausal?: Y Previous Abnormal Pap Smears?:N Date Time Test Result Flag (u) Normal Range 07/05/17 1206 @ HPV RNA RFLX GE Negative Negative @ @ The high-risk HPV types detected by the assay include: 16, @ 18, 31, 33, 35, 39, 45, 51, 52, 56, 58, 59, 66, and 68. Signed (signature on file) PUMA Hoffmann(ASCP) 07/06 1344 This Pap test was evaluated with the assistance of the SongwhalePrep Test Imaging System. Due to cytologic findings at the merchandise stocker microscope, comprehensive manual rescreening by a Industrial Hygiene Manager may be required. The Pap Smear is a screening test designed to aid in the detection of premalignant and malignant conditions of the uterine cervix. It is not a diagnostic procedure and should not be used as the sole means of detecting cervical cancer. Both false- positive and false- negative reports do occur. Depending on your risk status, a Pap smear should be obtained and evaluated every 1-3 years. END OF REPORT * ML=Testing performed at Main Lab DEPARTMENT OF PATHOLOGY, [address] [place] [address] Ignacio Mcfarland M.D. Director [facility] # [id number] 10 FASTING 10 HOUR 11 Because ethnic data is not always readily [...] 15-29 5 Kidney failure <15 (or dialysis) 12 Desirable: <150 Borderline High: 150-199 High: 200-499 Very High: >500 13 Desirable: <200 Borderline High: 200-239 High: >239 14 Low: <40 Desirable: 40-60 High: >60 15 Desirable: <100 Near Optimal: 100-129 Borderline High: 130-159 High: 160-189 Very High: >189 16 Interferon-gamma response to M. tuberculosis antigens detected, suggesting infection with M. tuberculosis. Positive results in patients at low-risk for tuberculosis should be interpreted with caution and repeat testing on a new sample should be considered as recommended by the 2017 ATS/IDSA/CDC Clinical Practice Guidelines for Diagnosis of Tuberculosis in Adults and Children [Lewinsohn DM et. al. Clin. Infect. Dis. 2017;64(2):111-115]. False positive results may occur in patients with prior infection with M. marinum, M. szulgai or M. kansasii. 17 Test Performed by: [facility] [address] [place] [address] 18 [id number] Test Performed by: [facility] [address] [place] [address] 20 Desirable <150 Borderline high 150-199 High 200-499 Very High >500 21 Desirable <200 Borderline high 200-239 High >239 22 Low <40 Desirable: 40-60 High: >60 23 Desirable: <100 mg/dL Near Optimal: 100-129 mg/dL Borderline High: 130-159 mg/dL High: 160-189 mg/dL Very High: >189 mg/dL 24 Because ethnic data is not always readily [...] Description Status Comment 05/26/2017 Mammogram Completed 12/08/2012 85508 Treadmill Interp/Report Only Completed 12/08/2012 47699 Stress Test Supervsn W/Out Completed I/R 05/10/2012 Colonoscopy Completed internal hemorrhoids other villarreal nl repeat 2022 Dr. molina Encounters Type Date Location Provider CPT E/M Dx [facility] [address] R76.12 4:20p Infectious Diseases Vania Hendrickson Z86.11 Office Visit 07/05/2017 11:10a [facility] Marlene Rojas [address]18 Z00.00 - Ella Caro Z12.4 E78.2 R12 Z23 R76.11 Office Visit 02/17/2017 8:30a [facility] Marlene Rojas 27587 F43.22 - Ella Caro E78.4 R12 Z23 Z11.1 Office Visit 01/18/2017 9:10a [facility] Marlene Rojas M.D. 12892 E78.4 - Ella Z91.14 F43.22 Office Visit 12/08/2012 8:18a [facility], Andrew Bonner M.D. 11073 786.50 Hospitalists 782.0 311 Office Visit 12/08/2012 8:59a [facility] Sacha Walden, [address]51 794.31 Vania 786.50 272.4 Office Visit 12/07/2012 8:18a [facility], Andrew Bonner M.D. 21382 786.50 Hospitalists 782.0 311 Office Visit 11/17/2012 8:56a [facility], Uyen Castillo, [address]645 965.4 Hospitalists Vania 272.2 Plan of Care Future Appointment(s):10/18/2017 2:00 pm - Gian Hendrickson M.D. at [facility] Kfkgfjle35/10/2018 9:50 am - Marlene Rojas M.D. at [facility] - Hrtgjarmc06/08/2018 - Gian Hendrickson M.D.R76.12 Nonspec reaction to gamma intrfrn respns w/o actv tubrclosisComments:hx of active TB with partial treatment, pos QFN, abnl CXR but asymptomatic. 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 Onemycobacterial culture from sputum , species pending. If NTM then rifampin for LTBI. If MTb then will consider 2 drug treatment for still what is most consistent with LTBI.Follow up:1 zsjeeC28.11 Personal history of izlomhwwhedoE23.8 Other nonspecific abnormal finding of lung field
--- OUTSIDE RECORDS SUMMARY | 2017-09-30 20:14 | XMS REPORT ---
:1960 External Reference #:[id number] Author Organization [employer] Address [address] [place] [address] Phone [phone] Care Team Providers Name Role Phone Marlene Rojas M.D. Primary Care Physician Unavailable Payers Type Date Identification Numbers Payment Provider Subscriber Commercial Effective: Policy Number: [id number] BS [employer] Alec Oh 2002 Group Number: [id number] [address] [address] PayID: [id number] [place] [address] Problems Date Description Provider Status Onset: 08/03/2016 Tear film insufficiency Annia Garrison O.D. Active Onset: 09/22/2017 Internal hordeolum Annia Garrison O.D. Active Onset: 08/03/2016 Presbyopia Annia Garrison O.D. Active Onset: 08/03/2016 Regular astigmatism Annia Garrison O.D. Active Family History Date Family Member(s) Problem(s) Comments General Hypertension Father No Current Problems Mother Cataract Social History Type Date Description Comments Marital Status Legal Status: Occupation Homemaker Work Status Unemployed ETOH Use Rarely consumes alcohol 1x a year Smoking Patient has never smoked Recreational Drug Use Denies Drug Use Daily Caffeine Does Not Consume Caffeine rare tea and chocolate Allergies, Adverse Reactions, Alerts Date Description Reaction Status Severity Comments 07/30/2016 NKDA active Medications Medication Date Status Form Strength Qnty SIG Indications Ordering Provider FML Liquifilm 09/22/ Active Suspension 0.1% 1unit 1 drop both Annia Rosen 2017 s eyes twice a Bladimir, day for 2 O.D. weeks, then discontinue Restasis 09/22/ Active Emulsion 0.05% 16.5m instill 1 Annia Rosne Multidose 2018 l drop twice a [place]rard, day both O.D. eyes Rosuvastatin 00/00/ Active Tablets 5mg [place], Calcium 0000 Tami Rios M.D. Results Description No Information Procedures Date CPT Code Description Status 08/03/2016 27475 Determination Of Refractive State Completed 08/03/2016 86560 Est Patient Comprehensive Exam Completed 07/18/2014 82827 Est Patient Comprehensive Exam Completed 12/22/2011 35385 Determination Of Refractive State Completed 12/22/2011 88390 New Patient Comprehensive Exam Completed Encounters Type Date Location Provider CPT E/M Dx Office Visit 01/12/2012 9:15a Jim Pichardo MD, Vanessa Maldonado, [address] 372.14 pc O.D. Plan of Care 09/22/2017 - Annia Garrison O.EllieH04.123 Dry eye syndrome of bilateral lacrimal glandsComments:Both of your eyes appear to be dry. Use artificial tears as directed. You can use the tears more often if you are reading a book or are on the computer, as we tend to blink less, making our eyes dry out more.[facility] offers a few items in our optical department to help alleviate dry eye symptoms. 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 This is when the Meibomian Glands do not function correctly and periodically get blocked up. This is a chronic condition that requires at home treatment. You can prevent a flare up by using a hot compress for 10-15 minutes at a time once or twice per day. There are a few ways you can do this:1) You can wet down a washcloth with hot water. You may have to re-wet the washcloth or twice during the 15 minute period. 2) You can put uncooked white rice into a clean pair of socks, and without wetting the sock or the rice, heat it up in the microwave for30 seconds. The white rice will release a moist heat and will remain warm for roughly 15 minutes. It is recommended that you replace the rice every month and clean the socks.After using the hot compress, massage along the lash line to help the oils in the glands move freely, proving an oil layer foryour tear film, to keep your tears from evaporating. It is also recommended that you use artificaltears throughout the day, even when your eyes do not feel dry. We recommend that you use them 3-4 times a day to prevent your ocular surface from becoming irritated. When you start to experience symptoms of dryness or irritation, it is often too late for the tears to help until you've let your eyes heal overnight.If you have any questions about your condition and the treatment, feel free to call our office at .H00.021 Hordeolum internum right upper ajailtL02.022 Hordeolum internum right lower eyelidComments:Smoking can increase the risk of developing or worsening any eye related disease, as well as affect your overall health. If you are a smoker, we strongly recommend that you quit.If you are not a smoker, we strongly recommend that you do not start.H00.025 Hordeolum internum left lower eyelid
--- OUTSIDE RECORDS SUMMARY | 2017-09-30 20:14 | XMS REPORT ---
:1960 External Reference #:[id number] Author Organization [facility] Address [address] [address] Phone [phone] Care Team Providers Name Role Phone Marlene Rojas MD Primary Care Physician Unavailable Payers Type Date Identification Numbers Payment Provider Subscriber Commercial Effective: Policy Number: [id number] BS Facets Alec Ok 2016 PayID: [id number] [address] [address] [place] [address] Medigap Part B Expires: 2016 Policy Number: [id number] BS Facets Alec Ok PayID: [id number] [address] [place] [address] Problems Date Description Provider Status Onset: 01/20/2017 Hyperlipidemia Marlene Roajs M.D. Active Note: familial Onset: 01/20/2017 Adjustment [...] Code Status Date Vaccine Reaction Lot # 87841 Given 07/05/2017 Tdap - [id number] Tetanus/Diptheria/Acellular Pertussis 70531 Given 02/17/2017 Influenza Virus Vaccine, givenIM in L [id number] Quadrivalent, Split, arm,marine.well site Preservative Free unremarkable,bandaid applied Vital Signs Date Vital Result Comment 09/16/2017 Height 62.2 inches 5'2.20" Weight 108.00 lb Heart Rate 54 /min BP Systolic Sitting 98 mmHg BP Diastolic Sitting 60 mmHg O2 % BldC Oximetry 98 % BMI (Body Mass Index) 19.6 kg/m2 09/14/2017 Height 62.2 inches 5'2.20" Weight 107.50 [...] [address]: Gian Hendrickson MD Acct: [id number] Unit: [id number] AGE: 57 Location: RESP Re07/22/17 SEX: F Status: REG REF SPEC: [id number] HARDY: 07/22/17-[address] [facility] [address]: Gian Hendrickson MD REQ: [id number] RECD: 07/22/17 STATUS: COMP STEFFANIE DR: Marlene Rojas MD _ SOURCE: RESP SPDESC:SPUTUM IND ORDERED: AFB Cult Smear Procedure Result Reported Site Acid Fast Stain - Direct Final 03/15/18- 1116 ML AFB Smear Result No Acid Fast Bacillus Present (Negative) Preparation By Direct Smear Due to limited sensitivity of the smear, results should be used as an adjunct in evaluating the patient's status. This specimen has been sent to referral laboratory for mycobacterial culture. * ML - Main Lab . END OF REPORT DEPARTMENT OF PATHOLOGY, [address] [place] [address] Ignacio Mcfarland M.D. Director [facility] # [id number] 2 SOURCE: SPUTUM, SPUTUM INDUCED MYCOBACTERIAL CULTURE FINAL No growth after 42 days of incubation. Test Performed by: [place] [address] 3 SOURCE: SPUTUM, SPUTUM INDUCED Additional Report MYCOBACTERIAL CULTURE FINAL ACID FAST ORGANISM [facility] [place] Previous comment was modified at 15:05 on 09/10/2017: No growth after 42 days of incubation. Test Performed by: [place] [address] REVISED REPORT --- Revised on 09/10/17 1607 --- Culture Result previously reported as: See Comment SOURCE: SPUTUM, SPUTUM INDUCED MYCOBACTERIAL CULTURE FINAL No growth after 42 days of incubation. Test Performed by: [place] [address] 4 SOURCE: SPUTUM, SPUTUM INDUCED Additional Report MYCOBACTERIAL CULTURE FINAL MYCOBACTERIUM AVIUM COMPLEX [facility] [place] Previous comment was modified at 15:05 on 09/10/2017: No growth after 42 days of incubation. Test Performed by: [place] [id number] REVISED REPORT --- Revised on 09/13/17 1546 --- Culture Result previously reported as: See Comment An SOURCE: SPUTUM, SPUTUM INDUCED Additional Report MYCOBACTERIAL CULTURE FINAL ACID FAST ORGANISM [facility] [place] Previous comment was modified at 15:05 on 09/10/2017: No growth after 42 days of incubation. Test Performed by: [address] [address] REVISED REPORT --- Revised on 09/10/17 1609 --- Culture Result previously reported as: See Comment SOURCE: SPUTUM, SPUTUM INDUCED MYCOBACTERIAL CULTURE FINAL No growth after 42 days of incubation. Test Performed by: [address] [address] 5 SEE RESULT BELOW Name: RONNIE LONGO : [address]: Gian Hendrickson MD Acct: [id number] Unit: [id number] AGE: 57 Location: RESP Re07/21/17 SEX: F Status: REG REF SPEC: [id number] HARDY: 07/21/[address] [facility] [address]: Gian Hendrickson MD REQ: [id number] RECD: 07/21/17 STATUS: TERESA VALIENTE DR: Marlene [...] . END OF REPORT DEPARTMENT OF PATHOLOGY, [address] [place] [address] Ignacio Mcfarland M.D. Director [facility] # [id number] 6 SEE RESULT BELOW Name: RONNIE GOMEZ : [address]: Gian Hendrickson MD Acct: [id number] Unit: [id number] AGE: 57 Location: RESP Re07/21/17 SEX: F Status: REG REF SPEC: [id number] HARDY: 07/21/17-[address] [facility] [address]: Gian Hendrickson MD REQ: [id number] RECD: 07/21/17 STATUS: COMP SHENG DR: Marlene Rojas MD _ SOURCE: RESP SPDESC:SPUTUM IND ORDERED: AFB Fast Track COMMENTS: SPUTUM #1 OF 3 FOR FAST TRACK; [place]SDOH Procedure Result Reported Site AFB - Fast Track MARRY Final 09/10/17- 924 ML Specimen Id: [id number] Submitter's Specimen Id: [id number] Specimen Type: Sputum Concentrated Smear(Ziehl - Neelsen/1,000 X) (07/23/17) No acid-fast bacilli seen. 07/23/2017 Direct Molecular Detection - Real-time PCR Mycobacterium tuberculosis complex DNA by real-time PCR*:NOT DETECTED Mycobacterium avium complex DNA by realtime PCR*:NOT DETECTED Culture: No acid-fast bacillus isolated from liquid and solid media * The performance characteristics of this test were determined by the [facility]. It has not been cleared or approved by the U.S.Food and Drug Administration. Test Performed by: [facility] [address] [place] [address] * - [facility] . END OF REPORT DEPARTMENT OF PATHOLOGY, [address] [place] [address] Ignacio Mcfarland M.D. Director [facility] # [id number] 7 SEE RESULT BELOW Name: SHANTHIRONNIE : [address]: Gian Hendrickson MD Acct: [id number] Unit: [id number] AGE: 57 Location: RESP Re07/20/17 SEX: F Status: REG REF SPEC: [id number] HARDY: 07/20/17-[address]: Gian Hendrickson MD REQ: [id number] RECD: 07/21/17 STATUS: TERESA VALIENTE DR: Marlene [...] . END OF REPORT DEPARTMENT OF PATHOLOGY, [address] [place] [address] Ignacio Mcfarland M.D. Director [facility] # [id number] 8 SOURCE: SPUTUM MYCOBACTERIAL CULTURE FINAL No growth after 42 days of incubation. Test Performed by: [address] [address] 9 SEE RESULT BELOW Name: RONNIE LONGO : [address]: Marlene Rojas MD Acct: [id number] Unit: [id number] AGE: 57 Location: [facility] Re07/05/17 SEX: F Status: REG REF SPEC: [id number] HARDY: 07/05/17-[address]: Marlene Rojas MD REQ: [id number] RECD: 07/05/17 STATUS: SOUT _ ORDERED: TP IMAGE ANAL, HPV/Thin Prep, HPV 16/18 GENE COMMENTS: [id number] Negative for Intraepithelial lesion or Malignancy A. [...] Signed (signature on file) PUMA Hoffmann(ASCP) 07/06 1340 This Pap test was evaluated with the assistance of the Fitsistant Test Imaging System. Due to cytologic findings at the air surveillance operator microscope, comprehensive manual rescreening by a Washtub Worker Helper may be required. The Pap Smear is [...] performed at Main Lab DEPARTMENT OF PATHOLOGY, [address] [place] [address] Ignacio Mcfarland M.D. Director [facility] # [id number] 10 10 HOUR 11 Because ethnic data is [...] Diagnosis of Tuberculosis in Adults and Children [Shanta WHITESIDE et. al. Clin. Infect. Dis. 2017;64(2):111-115]. False positive results may occur in patients with prior infection with M. marinum, M. szulgai or M. kansasii. 17 Test Performed by: [facility] [address] [place] [address] 18 [id number] Test Performed by: [facility] [place] [address] [place] [address] 20 Desirable <150 Borderline high 150-199 High [...] Description Status Comment 05/26/2017 Mammogram Completed 12/08/2012 17842 Treadmill Interp/Report Only Completed 12/08/2012 56187 Stress Test Supervsn W/Out Completed I/R 05/10/2012 Colonoscopy Completed internal hemorrhoids other villarreal nl repeat 2022 Dr. molina Encounters Type Date Location Provider CPT E/M Dx [facility] [address] R76.12 4:20p Infectious Diseases Vania Hendrickson Z86.11 Office Visit 07/05/2017 11:10a [facility] Internal Medicine Marlene Rojas [address]7420 Z00.00 - Ella Caro Z12.4 E78.2 R12 Z23 R76.11 Office Visit 02/17/2017 8:30a [facility] Internal Medicine Marlene Rojas 48248 F43.22 - Ella Caro E78.4 R12 Z23 Z11.1 Office Visit 01/18/2017 9:10a [facility] Internal Medicine Marlene Rojas M.D. 09506 E78.4 - Ella Z91.14 F43.22 Office Visit 12/08/2012 8:18a [facility] Andrew Bonner M.D. 40497 786.50 Hospitalists 782.0 311 Office Visit 12/08/2012 8:59a [facility] Yanatahannah Wal[place], [address] 794.31 MLacey 786.50 272.4 Office Visit 12/07/2012 8:18a [facility] Andrew Bonner M.D. 69508 786.50 Hospitalists 782.0 311 Office Visit 11/17/2012 8:56a [facility] Uyen Castillo, [address] 965.4 Hospitalists MLacey 272.2 Plan of Care Future Appointment(s):10/18/2017 2:00 pm - Gian Hendrickson M.D. at [facility]/10/2018 - Marlene Rojas M.D.R12 HeartburnComments:resolved with 4 weeks of slmtonidV79.12 Nonspec reaction to gamma intrfrn respns w/o actv bdevekkjudW52.9 Allergic rhinitis, unspecifiedComments:start taking claritin without decongestant once a day to help with the allergies
[2017-09-30 21:00] VITALS: BP 117/47
[2017-09-30] MEDS ORDERED: DOXYcycline CAP(*) 100 MG PO ONE (21:34)
--- NOTE | 2017-09-30 22:16 | ED ---
Skin Complaint - HPI Summary HPI Summary: 57 yo AF c/o tick bite less than 6 hrs ago on left lateral upper arm, removed by is concerned abut lyme disease. "thinks it was engorged" but not sure. denies any rash or neuro complaints - History of Current Complaint Chief Complaint: UCSkin Time Seen by Provider: 09/30/17 21:23 Stated Complaint: TICK BITE Hx Obtained From: Patient Onset/Duration: Started Hours Ago Timing: Lasting Hours Onset Severity: Mild Current Severity: Mild Pain Intensity: 0 Pain Scale Used: 0-10 Numeric - Allergy/Home Medications Allergies/Adverse Reactions: Allergies Allergy/AdvReac Type Severity Reaction Status Date / Time No Known Allergies Allergy Verified 09/30/17 21:00 Home Medications: Home Medications RiFAMPin CAP* 2 tab PO DAILY 09/30/17 [History Confirmed 09/30/17] PMH/Surg Hx/FS Hx/Imm Hx Previously Healthy: Yes Endocrine/Hematology History: Denies: Hx Diabetes Cardiovascular History: Reports: Hx Angina - CHEST PRESSURE, Hx Hypercholesterolemia, Other Cardiovascular Problems/Disorders - HYPERLIPIDEMIA Denies: Hx Congestive Heart Failure, Hx Hypertension, Hx Pacemaker/ICD Respiratory History: Reports: Hx Asthma Denies: Hx Chronic Obstructive Pulmonary Disease (COPD), Other Respiratory Problems/Disorders GI History: Reports: Other GI Disorders - HELICOBACTOR PYLORI History: Denies: Hx Renal Disease Sensory History: Denies: Hx Hearing Aid Neurological History: Reports: Hx Migraine Psychiatric History: Reports: Hx Depression, Hx Suicide Attempt - MOTRIN OVERDOSE 11/2012 Denies: Hx Eating Disorder, Hx Panic Disorder, Hx of Violent Episodes Against Others - Cancer History Hx Chemotherapy: No Hx Radiation Therapy: No - Immunization History Date of Tetanus Vaccine: Unk Date of Influenza Vaccine: Fall 2011 Infectious Disease History: No Infectious Disease History: Reports: Hx Tuberculosis - PER OLD H&P Denies: History Other Infectious Disease, Traveled Outside the [place] in Last 30 Days - Family History Known Family History: Negative: Cardiac Disease, Hypertension Family History: no family hx of Cardiac disease or HTN - Social History Alcohol Use: None Substance Use Type: Reports: None Hx Tobacco Use: No Smoking Status (MU): Never Smoked Tobacco Review of Systems Constitutional: Negative Eyes: Negative ENT: Negative Cardiovascular: Negative Positive: Shortness Of Breath Gastrointestinal: Negative Genitourinary: Negative Musculoskeletal: Negative Skin: Other - tick bite All Other Systems Reviewed And Are Negative: Yes Physical Exam Triage Information Reviewed: Yes Vital Signs On Initial Exam: Initial Vitals Temp Pulse Resp BP Pulse Ox 36.7 C 57 18 117/47 100 09/30/17 20:57 09/30/17 20:57 09/30/17 20:57 09/30/17 20:57 09/30/17 20:57 Vital Signs Reviewed: Yes Appearance: Positive: Well-Appearing Skin: Positive: Warm, Erythema @ - left lateral upper arm small area of erythema 1cm, no left over tick visualized on the bite site safety representative/Face: Positive: Normal Head/Face Inspection Eyes: Positive: Normal ENT: Positive: Normal ENT inspection Neck: Positive: Supple Respiratory/Lung Sounds: Positive: Clear to Auscultation Cardiovascular: Positive: Normal, S1, S2 Musculoskeletal: Positive: Normal Neurological: Positive: Normal Psychiatric: Positive: Normal Diagnostics - Vital Signs Vital Signs Temp Pulse Resp BP Pulse Ox 09/30/17 20:57 36.7 C 57 18 117/47 100 - Laboratory Lab Statement: Any lab studies that have been ordered have been reviewed, and results considered in the medical decision making process. Course/Dx - Course Course Of Treatment: tick bite, doxy 200mg PO x1 in UC, advised not likely to be infected with lyme - Diagnoses Provider Diagnoses: Tick bite of left upper arm Discharge - Sign-Out/Discharge Documenting (check all that apply): Discharge/Admit/Transfer - Discharge Plan Condition: Stable Disposition: HOME Patient Education Materials: Tick Bite (ED) Referrals: Marlene Rojas MD [Primary Care Provider] - - Billing Disposition and Condition Condition: STABLE Disposition: HOME
== END 2017-09-30 21:48 | disposition home or self-care (01) ==
LOC: UCEAST 20:08
DX: S40.862A Insect bite (nonvenomous) of left upper arm, initial encounter (principal); W57.XXXA Bitten or stung by nonvenomous insect and other nonvenomous arthropods, initial encounter; Y92.9 Unspecified place or not applicable
CPT/HCPCS: 99212; A9270-GY; G0463

== ENCOUNTER 2019-01-16 15:29 | Emergency (ER) | payer BC ==
--- NOTE | 2019-01-16 15:53 | UC ---
Hand/Wrist HPI - HPI Summary HPI Summary: 58 y/o female presents to the urgent care c/o Rt pinky finger pain and swelling s/p injury w/ a hammer Wednesday01/13/2019. Pt reports she was hammering and large piece of wood and hit his pinky finger w/ one of the broken pieces. PT has applied ice, but has not taken medications to alleviate symptoms. Pt w/ movement is sharp 6/10 associated w/ a bruise and mild swelling. Pt denies previous injury to that finger. She feels mild numbness at the tip of the finger at times. Pt denies fever, SOB, chest pain, abdominal pain, N/V/D. - History Of Current Complaint Stated Complaint: FINGER INJURY Time Seen by Provider: 01/16/19 15:51 Hx Obtained From: Patient ?: No Onset/Duration: Sudden Onset, Lasting Days - 3 days, Still Present Severity Initially: Moderate Severity Currently: Moderate Pain Intensity: 6 - movement Pain Scale Used: 0-10 Numeric Character Of Pain: Sharp Aggravating Factor(s): Movement, Pulling Alleviating Factor(s): Rest, Ice Associated Signs And Symptoms: Positive: Swelling, Bruising, Numbness/Tingling - at the tip of finger at times Related History: Dominant Hand Right - Allergies/Home Medications Allergies/Adverse Reactions: Allergies Allergy/AdvReac Type Severity Reaction Status Date / Time No Known Allergies Allergy Verified 01/16/19 15:49 PMH/Surg Hx/FS Hx/Imm Hx Previously Healthy: Yes Endocrine History: Dyslipidemia - Surgical History Surgical History: None - Family History Known Family History: Positive: Hypertension Negative: Cardiac Disease Family History: Dyslipidemia - Social History Occupation: Employed Full-time Lives: With Family Alcohol Use: None Substance Use Type: None Smoking Status (MU): Never Smoked Tobacco - Immunization History Most Recent Influenza Vaccination: 02/2017 Most Recent Tetanus Shot: UNKNOWN Review of Systems All Other Systems Reviewed And Are Negative: Yes Constitutional: Positive: Negative Skin: Positive: Bruising - RT pinky finger w/ swelling s/p injury w/ a piece of wood Eyes: Positive: Negative ENT: Positive: Negative Respiratory: Positive: Negative Cardiovascular: Positive: Negative Gastrointestinal: Positive: Negative Genitourinary: Positive: Negative Motor: Positive: Negative Neurovascular: Positive: Negative Musculoskeletal: Positive: Decreased ROM - RT pinky finger, Other: - RT pinky finger pain s/p injury w/ a piece of wood Neurological: Positive: Negative Psychological: Positive: Negative Is Patient Immunocompromised?: No Physical Exam - Summary Physical Exam Summary: Vital Signs Reviewed: Yes General: Well developed well nourished female sitting in the examining table w/ o any apparent distress Eyes: Positive: Conjunctiva Clear - PERRLA, EOMI ENT: Positive: Normal ENT inspection, Hearing grossly normal, Pharynx normal, TMs normal Neck: Positive: Supple, Nontender, No Lymphadenopathy Respiratory: Positive: Chest non-tender, Lungs clear, Normal breath sounds, No respiratory distress Cardiovascular: Positive: RRR, No Murmur, Pulses Normal, Brisk Capillary Refill Abdomen Description: Positive: Nontender, No Organomegaly, Soft. Negative: CVA Tenderness (R), CVA Tenderness (L) Bowel Sounds: Positive: Present Musculoskeletal: Positive: Strength Intact, No Edema, RT Hand/Fingers: the L hand is without obvious asymmetry or deformity when compared to the R hand. Positive mild swelling around RT #5 PIPJ and DIPJ, with ecchymosis and bruise w / point tenderness on palpation. no obvious deformity. No surface trauma, open wounds,bony deformity. Normal cascade of fingers. Normal flexion and extension of fingers, except for R#5 phalanx due to pain. FDS and FDP intact against resistance. No focal fullness, throbbing pain, swelling of finger tip. Pulses and capillary refill WNL, positive reflexes and sensation intact Neurological Exam: Normal Psychological Exam: Normal Skin Exam: Normal Triage Information Reviewed: Yes Hand/Wrist Course/Dx - Course Course Of Treatment: 58 y/o female presents to the urgent care c/o Rt pinky finger pain and swelling s/p injury w/ a hammer Wednesday01/13/2019. Pt reports she was hammering and large piece of wood and hit his pinky finger w/ one of the broken pieces. PT has applied ice, but has not taken medications to alleviate symptoms. Pt w/ movement is sharp 6/10 associated w/ a bruise and mild swelling. Pt denies previous injury to that finger. She feels mild numbness at the tip of the finger at times. Pt denies fever, SOB, chest pain, abdominal pain, N/V/D. Hx obtained. Positive mild swelling around RT #5 PIPJ and DIPJ, with ecchymosis and bruise w/ point tenderness on palpation on examination. RT #5 phalanx X-ray ordered: IMPRESSION: #. Nonarticular mildly impacted fracture fifth proximal phalanx. #. Predisposing decreased bone density. Consider follow-up DEXA scan for further assessment. Pt's symptoms discussed w/ DR Marshall who recommends finger splint and body tape and f/u w/ Orthopedic. Pt' RT finger immobilized with a finger splint and body tape with #4th digit by me and neurovascular intact after splinting. Pt given Ibuprofen PO at the clinic for pain, Rx same medication.Pt advised RICE. F/u with Orthopedic DR Hooks in 1-2 days for further evaluation and treatment. D/C instructions explained. Pt understood and agreed with plan of care - Differential Dx/Diagnosis Differential Diagnosis/HQI/PQRI: Contusion, Infection, Sprain, Strain, Tendonitis Provider Diagnosis: Injury of right little finger, Nondisplaced fracture of phalanx of right little finger Discharge ED - Sign-Out/Discharge Documenting (check all that apply): Patient Departure - D/C home All imaging exams completed and their final reports reviewed: Yes - Discharge Plan Condition: Stable Disposition: HOME Prescriptions: Ibuprofen TAB* [Motrin TAB* 600 MG] 600 mg PO Q6H PRN #30 tab PRN Reason: moderate pain Patient Education Materials: Finger Fracture (ED) Referrals: Marlene Rojas MD [Primary Care Provider] - 3 Days Sid Hooks MD [Medical Doctor] - 1 Day Additional Instructions: 1-Please take Ibuprofen PO q6-8hrs prn after meals as directed to alleviate pain and swelling. 2-Please apply ice, keep your finger immobilized with the splint. Keep your hand elevated to decrease swelling 3- Please f/u with Orthopedic Dr Hooks in 1-2 days for further evaluation and treatment on your finger fracture. 4- Please f/u w/ your PCP for a DEXA test and further management since there is decrease bone density observed on X-ray - Billing Disposition and Condition Condition: STABLE Disposition: Home
[2019-01-16 15:54] VITALS: BP 122/51
[2019-01-16] MEDS ORDERED: Ibuprofen TAB* 600 MG PO ONE (16:41)
== END 2019-01-16 17:08 | disposition home or self-care (01) ==
LOC: UCEAST 15:29
DX: S62.606A Fracture of unspecified phalanx of right little finger, initial encounter for closed fracture (principal); W20.8XXA Other cause of strike by thrown, projected or falling object, initial encounter; Y93.89 Activity, other specified; Y92.9 Unspecified place or not applicable; Y99.8 Other external cause status; E78.5 Hyperlipidemia, unspecified
CPT/HCPCS: 73140; 99212; A9270-GY; G0463

== ENCOUNTER 2019-05-21 04:59 | Emergency (ER) | payer BC ==
--- NOTE | 2019-05-21 05:35 | ED ---
GI/ HPI - HPI Summary HPI Summary: Patient is a 58 y/o F presenting to [facility] for a chief complaint of UTI symptoms for the last 2 days. Patient notes urinary frequency, urinary burning, dysuria, and pain with urination. She reports an episode of hematuria on 05/20/19. For the last month, she has had symptoms, but she states her symptoms worsened over the last 2 days. Patient denies fever, flank pain, or back pain. Any aggravating or alleviating factors are denied. Patient states she has a history of UTI after giving . PMHx is significant hypercholesterolemia for which she takes medication. Allergies noted. - History of Current Complaint Chief Complaint: EDUrogenitalProblems Time Seen by Provider: 05/21/19 05:27 Stated Complaint: UTI PER PT Hx Obtained From: Patient Onset/Duration: Atraumatic, Still Present Timing: Constant Severity: Moderate Current Severity: Severe Pain Intensity: 8 Location of Pain: Groin Associated Signs and Symptoms: Positive: Hematuria, Dysuria, UTI Symptoms - Positive urinary frequency and urinary burning. Negative: Back Pain, Fever, Flank Pain Aggravating Factor(s): Nothing Alleviating Factor(s): Nothing - Allergy/Home Medications Allergies/Adverse Reactions: Allergies Allergy/AdvReac Type Severity Reaction Status Date / Time No Known Allergies Allergy Verified 05/21/19 05:02 PMH/Surg Hx/FS Hx/Imm Hx Previously Healthy: Yes Endocrine/Hematology History: Denies: Hx Diabetes Cardiovascular History: Reports: Hx Angina - CHEST PRESSURE, Hx Hypercholesterolemia, Other Cardiovascular Problems/Disorders - HYPERLIPIDEMIA Denies: Hx Congestive Heart Failure, Hx Hypertension, Hx Pacemaker/ICD Respiratory History: Reports: Hx Asthma Denies: Hx Chronic Obstructive Pulmonary Disease (COPD), Other Respiratory Problems/Disorders GI History: Reports: Other GI Disorders - HELICOBACTOR PYLORI History: Denies: Hx Renal Disease Sensory History: Denies: Hx Legally Blind, Hx Deafness Opthamlomology History: Denies: Hx Legally Blind EENT History: Denies: Hx Deafness Neurological History: Reports: Hx Migraine Psychiatric History: Reports: Hx Depression, Hx Suicide Attempt - MOTRIN OVERDOSE 11/2012 Denies: Hx Eating Disorder, Hx Panic Disorder, Hx of Violent Episodes Against Others - Cancer History Hx Chemotherapy: No Hx Radiation Therapy: No - Surgical History Surgical History: None Surgery Procedure, Year, and Place: None - Immunization History Date of Tetanus Vaccine: Unk Date of Influenza Vaccine: Fall 2011 Infectious Disease History: No Infectious Disease History: Reports: Hx Tuberculosis - 40 years agop Denies: History Other Infectious Disease, Traveled Outside the [place] in Last 30 Days - Family History Known Family History: Positive: Hypertension Negative: Cardiac Disease Family History: Dyslipidemia - Social History Occupation: Unemployed Lives: With Family Alcohol Use: None Hx Substance Use: No Substance Use Type: Reports: None Hx Tobacco Use: No Smoking Status (MU): Never Smoked Tobacco Review of Systems Negative: Fever Positive: burning - Urinary, dysuria, frequency - Urinary, hematuria, pain - With urination. Negative: flank pain Negative: Myalgia - Back All Other Systems Reviewed And Are Negative: Yes Physical Exam - Summary Physical Exam Summary: Appearance: Well-appearing, Well-nourished, lying in bed comfortably Skin: Warm, dry, no obvious rash Eyes: sclera anicteric, no conjunctival pallor ENT: mucous membranes moist, pharynx appears normal Neck: Supple, nontender Respiratory: Clear to auscultation, no signs of respiratory distress Cardiovascular: Normal S1, S2. No murmurs. Normal distal pulses in tibial and radial bilaterally. Abdomen: Soft, nontender, normal active bowel sounds present Musculoskeletal: Normal, Strength/ROM Intact Neurological: A&Ox3, awake and alert, mentation is normal, speech is fluent and appropriate Psychiatric: affect is normal, does not appear anxious or depressed Triage Information Reviewed: Yes Vital Signs On Initial Exam: Initial Vitals Temp Pulse Resp BP Pulse Ox 97.4 F 67 16 128/89 100 05/21/19 05:00 05/21/19 05:00 05/21/19 05:00 05/21/19 05:00 05/21/19 05:00 Vital Signs Reviewed: Yes Procedures - Sedation Patient Received Moderate/Deep Sedation with Procedure: No Diagnostics - Vital Signs Vital Signs Temp Pulse Resp BP Pulse Ox 05/21/19 05:00 97.4 F 67 16 128/89 100 - Laboratory Lab Statement: Any lab studies that have been ordered have been reviewed, and results considered in the medical decision making process. GIGU Course/Dx - Course Course Of Treatment: Patient is a 58 y/o F presenting to [facility] for a chief complaint of UTI symptoms for the last 2 days. Patient notes urinary frequency, urinary burning, dysuria, and pain with urination. She reports an episode of hematuria on 05/20/19. For the last month, she has had symptoms, but she states her symptoms worsened over the last 2 days. Patient denies fever, flank pain, or back pain. Any aggravating or alleviating factors are denied. Patient states she has a history of UTI after giving . PMHx is significant hypercholesterolemia for which she takes medication. Allergies noted. On exam, unremarkable findings. In the ED course, patient was given macrodantin 100 mg PO. Laboratory abnormal findings: urine color red, urine WBC 1+, urine RBC 3+, urine squamous epith cells present, urine bacteria 1+. Patient will be discharged with a diagnosis of urinary tract infection. Follow up with PCP within 3 days. - Diagnoses Provider Diagnoses: UTI (urinary tract infection) Discharge ED - Sign-Out/Discharge Documenting (check all that apply): Patient Departure - Discharge - Discharge Plan Condition: Good Disposition: HOME Prescriptions: Nitrofurantoin Monohyd/M-Cryst [Macrobid 100 mg Capsule] 100 mg PO BID #14 cap Patient Education Materials: Urinary Tract Infection in Women (ED) Referrals: Marlene Rojas MD [Primary Care Provider] - 3 Days (if not better) - Billing Disposition and Condition Condition: GOOD Disposition: Home - Attestation Statements Document Initiated by Link: Yes Documenting Migelibe: Mirian Hazel Provider For Whom Link is Documenting (Include Credential): Jose Angel Enriquez MD Scribe Attestation: Mirian Boles, scribed for Jose Angel Enriquez MD on 05/22/19 at 0122. Scribe Documentation Reviewed: Yes Provider Attestation: The documentation as recorded by the Mirian sanchez accurately reflects the service I personally performed and the decisions made by , Jose Angel Enriquez MD Status of Scribe Document: Viewed
[2019-05-21 05:37] LABS: Urine Appearance Turbid; Urine Color Red; Urine Specific Gravity 1.019 (1.010-1.030)
[2019-05-21 05:42] LABS: Urine White Blood Cell 1+(6-10/hpf) (Absent)
[2019-05-21 05:43] LABS: Urine Bacteria 1+ (Absent); Urine Red Blood Cell 3+(>10/hpf) (Absent)
[2019-05-21 05:44] LABS: Urine Squamous Epithelial Cell Present (Absent)
[2019-05-21] MEDS ORDERED: Nitrofurantoin Macrocrystals* 100 MG CAP PO ONE (05:50)
[2019-05-21] MEDS ORDERED: Phenazopyridine TAB* 100 MG PO ONE (05:51)
[2019-05-21 06:13] VITALS: BP 130/60
== END 2019-05-21 05:51 | disposition home or self-care (01) ==
LOC: ED 04:59
DX: N39.0 Urinary tract infection, site not specified (principal); E78.00 Pure hypercholesterolemia, unspecified; E78.5 Hyperlipidemia, unspecified; J45.909 Unspecified asthma, uncomplicated; F32.9 Major depressive disorder, single episode, unspecified
CPT/HCPCS: 81003; 87086; 99282; A9270-GY